=== PATIENT | male | born 1985 | race African-American/Black ===

== ENCOUNTER 2018-05-17 18:27 | Emergency (ER) | payer SELFPAY ==
[~2018-05-17] VITALS: Ht 182.9 cm; Wt 99.8 kg
--- NOTE | 2018-05-17 18:33 | NUR ---
ED Nurse Note: PT WALKED IN TO ER TODAY FROM HOME. AOX4. PT HERE TO GET SCREENED FOR POSSIBLE STI. PT STATES HE IS ASYMPTOMATIC BUT WAS TOLD BY A PARTNER TO GET TESTED.
[2018-05-17 18:35] VITALS: BP 132/86
[2018-05-17] MEDS ORDERED: NKM (18:36)
--- NOTE | 2018-05-17 19:09 | NUR ---
ED Nurse Note: REPORT GIVEN TO CHRISSY VALLADARES.
--- NOTE | 2018-05-17 19:12 | Emergency Room Report ---
History of Present Illness General Chief Complaint: General Complaint Source: Patient (Brittany Watts) Present Illness HPI 32-year-old male with no significant past medical history severe today for evaluation of possible sexually transmitted diseases. He reports that his significant other text of him today saying that she has pain S vaginal lesion and she is at the emergency room to be evaluated for STDs. Patient denies penile discharge, dysuria, penile lesions, pruritus. Patient Lasix showing counter was 2 weeks ago with his female partner. Denies any other sexual activity. As abdominal pain, or any lesions on the thighs or the penile area. Patient reports he shaved over the penile area a week ago and started noticing brown spots after putting alcohol of breath. Denies any pain or pruritus in the inguinal area today. Patient is anxious and wants to know if he is positive for any STDs and wants to be prophylactically treated for possible STDs. Chest pain, SOB, palpitation, no associated symptoms no condom use (Brittany Watts) Allergies: Coded Allergies: PENICILLINS (Verified Allergy, Intermediate, HIVES, 05/17/18) Patient History Past Medical History: see triage record Past Surgical History: none Pertinent Family History: none Immunizations: UTD Reviewed Nursing Documentation: PMH: Agreed; PSxH: Agreed (Brittany Watts) Nursing Documentation-PMH Past Medical History: No Stated History (Brittany Watts) Review of Systems All Other Systems: negative except mentioned in HPI (Brittany Watts) Physical Exam Vital Signs Date Time Temp Pulse Resp B/P (MAP) Pulse Ox O2 Delivery O2 Flow Rate FiO2 05/17/18 18:33 98.1 75 18 136/89 96 Room Air Sp02 EP Interpretation: reviewed, normal General Appearance: normal inspection, well appearing Head: normocephalic Eyes: bilateral eye normal inspection, bilateral eye PERRL ENT: normal ENT inspection Neck: normal inspection, supple Respiratory: normal inspection, lungs clear, no rhonchi, no wheezing Cardiovascular #1: normal inspection, no edema, no murmur Gastrointestinal: normal inspection, non tender, soft Rectal: deferred Genitourinary: no CVA tenderness, penis normal, other - brown macular lesions noted on penile shaft shaft on the left side which are reminiscent of healed folliculitis Musculoskeletal: normal inspection, back normal Neurologic: normal inspection, alert Psychiatric: anxious Skin: well hydrated, rash - Brown macular spots over the left lateral penile shaft, reminiscent of healed folliculitis Lymphatic: normal inspection, no adenopathy (Brittany Watts) Medical Decision Making PA Attestation All diagnoses and treatment plans were reviewed and discussed with supervising physician Dr. Mejia (Brittany Watts) Diagnostic Impression: Primary Impression: Exposure to STD ER Course 32-year-old male with no significant past medical history severe today for evaluation of possible sexually transmitted diseases. He reports that his significant other text of him today saying that she has pain S vaginal lesion and she is at the emergency room to be evaluated for STDs. Patient denies penile discharge, dysuria, penile lesions, pruritus. Patient Lasix showing counter was 2 weeks ago with his female partner. Denies any other sexual activity. As abdominal pain, or any lesions on the thighs or the penile area. Patient reports he shaved over the penile area a week ago and started noticing brown spots after putting alcohol of breath. Denies any pain or pruritus in the inguinal area today. Patient is anxious and wants to know if he is positive for any STDs and wants to be prophylactically treated for possible STDs. Chest pain, SOB, palpitation, no associated symptoms no condom use Ddx considered but are not limited to exposure to STD, chlamydia, gonorrhea, syphilis Vital signs: are WNL, pt. is afebrile H&PE are most consistent with as a possible STD ORDERS: GC and chlamydia, azithromycin ED INTERVENTIONS: None required at this time. DISCHARGE: At this time pt. is stable for d/c to home. Will provide printed patient care instructions, and any necessary prescriptions. Care plan and follow up instructions have been discussed with the patient prior to discharge. patient understands that the results for chlamydia and gonorrhea will not be ready today however he agrees to be treated prophylactically for both chlamydia and gonorrhea and questions whether he needs to be retested he has been told that he needs to wait for the results if positive he needs to be retested in 4- 6 weeks and if negative he does not need to be retested. As we cannot do RPR at the ED today due to send out patient decides to go to urgent care for further testing of STD and HIV if symptoms or when has heard from the significant other with a solid diagnosis. (Brittany Watts) Last Vital Signs Date Time Temp Pulse Resp B/P (MAP) Pulse Ox O2 Delivery O2 Flow Rate FiO2 05/17/18 18:35 74 17 Room Air 05/17/18 18:35 98.4 132/86 97 (Brittany Watts) Disposition: HOME, SELF-CARE Condition: Stable Scripts Azithromycin (AZITHROMYCIN) 500 Mg Tablet 4 TAB ORAL ONCE for 1 Day, #4 TAB Prov: Brittany Watts 05/17/18 Referrals: NOT CHOSEN IPA/,REFERRING (PCP) Patient Instructions: Sexually Transmitted Disease, [id number] Additional Instructions: patient agrees to be prophylactically treated for chlamydia and gonorrhea, patient to check with partner for correct diagnosis of possible STD. Patient to further follow with primary care provider for further assessment and further testing. Use condoms for the next 7-10 days. Brittany Watts May 17, 2018 19:12 Jonnathan Mejia MD May 18, 2018 01:28
[2018-05-17] MEDS ORDERED: AZITHROMYCIN500 MG ORAL (19:13)
[2018-05-17 19:28] VITALS: BP 128/84
--- NOTE | 2018-05-17 19:29 | NUR ---
ER Nurse Note: ER PA canceled blood test for RPR. Pt seen, treated, medically cleared for discharge by ER PA. Discharge instructions and prescriptions given with repeat verbalization by pt. Instructed pt to follow up with primary care provider/clinic for follow up appointment. Pt a&ox4, VSS, no signs of distress. ID band removed. Pt ambulatory, left with all belongings via own transportation.
== END 2018-05-17 19:25 | disposition home or self-care (01) ==
LOC: EMR 19:01
DX: Z20.2 Contact with and (suspected) exposure to infections with a predominantly sexual mode of transmission (principal); R21 Rash and other nonspecific skin eruption; Z88.0 Allergy status to penicillin
CPT/HCPCS: 87491; 87590; 99283

== ENCOUNTER 2018-07-21 14:32 | Emergency (ER) | payer SELFPAY ==
[~2018-07-21] VITALS: Ht 182.9 cm; Wt 114.8 kg
[~2018-07-21 14:32] MED LIST: AZITHROMYCIN500 MG ORAL; NKM
[2018-07-21 14:43] VITALS: BP 125/87
--- NOTE | 2018-07-21 14:43 | NUR ---
ED Nurse Note: Pt came into the Er w/ complainst of flu like symptoms since last night. Dry cough noted. A + O x4. Ambulatory. Skin warm to touch.
--- NOTE | 2018-07-21 14:54 | NUR ---
ED Nurse Note: Xray at the bedside
[2018-07-21] MEDS ORDERED: TAMIFLU75 MG ORAL (15:42)
[2018-07-21] MEDS ORDERED: IBUPROFEN600 MG ORAL (15:42)
--- NOTE | 2018-07-21 15:42 | Diagnostic Imaging Report ---
Indication: Cough Technique: One view of the chest Comparison: none Findings: Lungs and pleural spaces are clear. Heart size is normal Impression: No acute process
[2018-07-21] MEDS ORDERED: ALBUTEROL SULF8.5 GM INH (15:44)
[2018-07-21 15:46] VITALS: BP 125/87
--- NOTE | 2018-07-21 15:46 | NUR ---
ER DISCHARGE NOTE: Patient is cleared to be discharged per ERMD, pt is aox4, on room air, with stable vital signs. pt was given dc and prescription instructions, pt was able to verbalize understanding, pt id band removed without complications. pt is able to ambulate with steady gait. pt took all belongings.
--- NOTE | 2018-07-21 16:31 | Emergency Room Report ---
History of Present Illness General Chief Complaint: Flu Like Symptoms Source: Patient Present Illness HPI Patient presents emergency department today complaint cough congestion chest discomfort with deep inspiration for one day. Patient states everybody at work is sick. Patient states that there are out with cough congestion. Bronchitis and possible flu. He complains of subjective fevers and chills. Denies any leg pain leg swelling. Symptoms noted to moderate.Differential diagnoses include acute fracture, dislocation, or strain just to name a few. Allergies: Coded Allergies: PENICILLINS (Verified Allergy, Intermediate, HIVES, 05/17/18) Patient History Past Medical History: none Past Surgical History: none Pertinent Family History: none Social History: Denies: smoking, alcohol use, drug use Reviewed Nursing Documentation: PMH: Agreed; PSxH: Agreed Nursing Documentation-PMH Past Medical History: No Stated History Review of Systems All Other Systems: negative except mentioned in HPI Physical Exam Vital Signs Date Time Temp Pulse Resp B/P (MAP) Pulse Ox O2 Delivery O2 Flow Rate FiO2 07/21/18 14:34 97.9 60 22 130/84 97 Room Air 07/21/18 14:43 98 Sp02 EP Interpretation: reviewed, normal General Appearance: normal inspection, well appearing, no apparent distress, alert Head: atraumatic Eyes: bilateral eye normal inspection ENT: normal ENT inspection, hearing grossly normal, normal voice Neck: normal inspection, full range of motion, supple, no bony tend Respiratory: normal inspection, lungs clear, normal breath sounds, no respiratory distress, no retraction, no wheezing Cardiovascular #1: regular rate, rhythm, no edema Gastrointestinal: normal inspection, normal bowel sounds, non tender, soft, no guarding, no hernia Genitourinary: no CVA tenderness Musculoskeletal: normal inspection, back normal, normal range of motion Neurologic: normal inspection, alert, responsive, speech normal Psychiatric: normal inspection, judgement/insight normal, mood/affect normal Skin: normal inspection, normal color, no rash Medical Decision Making Diagnostic Impression: Primary Impression: Influenza-like symptoms ER Course Patient presents emergency department today complaint cough congestion and chest discomfort. Differential registration school pneumonia, acute cord syndrome, CHF, viral syndrome, influenza just name a few. Patient's exam and history is consistent with influenza. EKG chest are normal. Therefore patient was given prescription for Tamiflu.Patient is advised to follow up with primary doctor in 2-3 days and return the emergency room for any worsening symptoms and as needed. EKG Diagnostic Results Rate: normal Rhythm: NSR ST Segments: no acute changes Rhythm Strip Diag. Results EP Interpretation: yes Rate: 64 Rhythm: NSR, no PVC's, no ectopy Chest X-Ray Diagnostic Results Chest X-Ray Diagnostic Results : Chest X-Ray Ordered: Yes # of Views/Limited/Complete: 1 View Indication: Chest Pain EP Interpretation: No Impression: No acute disease Last Vital Signs Date Time Temp Pulse Resp B/P (MAP) Pulse Ox O2 Delivery O2 Flow Rate FiO2 07/21/18 15:46 98.0 77 20 125/87 98 Room Air 98 Status: improved Disposition: HOME, SELF-CARE Condition: Stable Scripts Albuterol Sulfate* (ALBUTEROL SULFATE MDI*) 8.5 Gm Hfa.aer.ad 2 PUFF INH Q4H PRN for cough/wheezing, #1 EA 0 Refills Prov: Sal Bernal MD 07/21/18 Ibuprofen* (MOTRIN*) 600 Mg Tablet 600 MG ORAL Q8H PRN for For Pain, #15 TAB 0 Refills Prov: Sal Bernal MD 07/21/18 Oseltamivir Phosphate (Tamiflu) 75 Mg Capsule 75 MG ORAL TWICE A DAY for 5 Days, CAP Prov: Sal Bernal MD 07/21/18 Departure Forms: Return to Work Return to Work Date: Jul 27, 2018 Patient Instructions: Influenza, Adult, [id number] Sal Bernal MD Jul 21, 2018 16:31
== END 2018-07-21 15:46 | disposition home or self-care (01) ==
LOC: EMR 15:07
DX: J11.1 Influenza due to unidentified influenza virus with other respiratory manifestations (principal); Z88.0 Allergy status to penicillin
CPT/HCPCS: 71045; 93005; 99283